=== PATIENT | male | born 1970 | race African-American/Black ===

== ENCOUNTER 2016-11-03 23:33 | Emergency (ER) | payer SELFPAY ==
[~2016-11-03] VITALS: Ht 172.7 cm; Wt 124.7 kg
[2016-11-04] MEDS ORDERED: IV NORMAL SALINE 1000ML BAG 1,000 ML IV SCH (00:16)
[2016-11-04 00:25] LABS: BASO % 0 % (0-3); EOS % 1 % (0-3); HEMATOCRIT 42.4 % (39.0-53.0); LYMPH # 1.6 x10^3/uL (1.0-4.8); LYMPH % 24 % (24-48); MEAN CORPUSCULAR HEMOGLOBIN 29 pg (25-35); MEAN CORPUSCULAR HGB CONC 33 g/dL (31-37); MEAN CORPUSCULAR VOLUME 88 fL (79-100); MONO % 6 % (0-9); NEUT % 69 % (31-73); PLATELET COUNT 269 x10^3/uL (140-400); RED BLOOD COUNT 4.84 x10^6/uL (4.30-5.70); RED CELL DISTRIBUTION WIDTH 14.5 % (11.5-14.5); WHITE BLOOD COUNT 6.8 x10^3/uL (4.0-11.0)
[2016-11-04 00:29] LABS: CALCIUM 9.2 mg/dL (8.5-10.1); CREATININE 1.4 mg/dL (0.7-1.3); GFR 54.1; POTASSIUM 3.5 mmol/L (3.5-5.1)
[2016-11-04 00:35] LABS: ALBUMIN 4.1 g/dL (3.4-5.0); TOTAL BILIRUBIN 0.7 mg/dL (0.2-1.0); TOTAL PROTEIN 8.2 g/dL (6.4-8.2)
[2016-11-04] MEDS ORDERED: CONTRAST GIVEN MC PRN (00:45)
[2016-11-04] MEDS ORDERED: IOHEXOL 300 MG/ML 75 ML VIAL IV ONE (01:00)
[2016-11-04] MEDS ORDERED: IOHEXOL 240 MG/ML 50ML VIAL. IV ONE (01:00)
--- NOTE | 2016-11-04 02:21 | RAD ---
Examination: CT of the abdomen pelvis with oral and IV contrast . History: History of umbilical hernia, pain. COMPARISON None available. TECHNIQUE Axial CT images of the abdomen pelvis were performed with oral and IV contrast. Coronal sagittal reformats were performed. Findings: There is a 4 millimeter pulmonary nodule identified in the right lower lobe of the lung laterally. Minimal bibasilar lung atelectasis. No evidence of free air identified in the abdomen. The visualized liver demonstrates diffuse decreased attenuation throughout the liver likely hepatic steatosis. The visualized spleen, adrenals grossly appears unremarkable. The gallbladder is mildly distended. Small hiatal hernia is identified. Stomach is mildly distended with contrast. There is a 1.9 centimeter hypodensity measuring -78 Hounsfield unit identified in the 1st part of the duodenum or the distal stomach could be a lipoma or fatty food material. The small bowel is nondilated. Feces and gas noted in the colon. Few sigmoid colon diverticulosis identified. The urinary bladder is mildly distended throughout . Small umbilical hernia is identified containing fat and probable omentum. The hernia measures 3.7 centimeters in AP dimension and 2.1 centimeter in transverse dimension. Bilateral kidneys enhance symmetrically. The caliber of the aorta grossly appears unremarkable . Mild degenerative changes lumbar spine. There is bony fusion changes identified at L5-S1 facet region. The appendix is not clearly identified. IMPRESSION - Small umbilical hernia identified containing fat and probably the omentum. - Hepatic steatosis. - Small hiatal hernia. - There is a 1.9 centimeter hypodensity measuring -78 Hounsfield unit identified in the 1st part of the duodenum or the distal stomach could be a lipoma or fatty food material. - 4 millimeter pulmonary nodule identified in the right lower lobe of the lung. Followup nonemergent CT chest can be considered per Fleischner society guidelines. Electronically signed by: Junior Acharya (Nov 04, 2016 02:21:00)
[2016-11-04 02:35] VITALS: BP 128/61
[2016-11-04] MEDS ORDERED: HYDR-971 PO (02:48)
--- NOTE | 2016-11-04 02:48 | PHYS DOC ---
Past Medical History Past Medical History: High Cholesterol, Hypertension Additional Past Medical Histor: Hernia, back pain Past Surgical History: Other Additional Past Surgical Histo: achilles tendon, rotator cuff, back surgery Alcohol Use: Rarely Drug Use: None Adult General Chief Complaint Chief Complaint: ABDOMINAL PAIN HPI HPI Patient is a 46 year old male who presents with abdominal pain. Patient reports he has been having periumbilical pain for the past 5 or 6 months intermittently. Patient reports today he was working (he has to lift heavy boxes at work) and the pain got markedly worse and he had increased swelling around his umbilicus. No nausea or vomiting. He has not taken anything for symptoms. No other acute complaints. Review of Systems Review of Systems Constitutional: Denies fever or chills Eyes: Denies change in visual acuity or eye pain HENT: Congestion Respiratory: Denies cough or shortness of breath Cardiovascular: Denies chest pain GI: Periumbilical abdominal pain. Denies nausea, vomiting, bloody stools or diarrhea : Denies dysuria or hematuria Musculoskeletal: Denies back pain or joint pain Integument: Denies rash or skin lesions Neurologic: Denies headache, focal weakness or sensory changes Current Medications Current Medications Current Medications Medications (Trade) Dose Ordered Sig/Debbie Start Time Stop Time Status Last Admin Dose Admin Info (Do NOT chart on this entry -- for MONITORING) 1 each PRN DAILY PRN 11/04/16 00:45 11/04/16 03:00 FL Iohexol (Omnipaque 240 Mg/ml) 30 ml 1X ONCE 11/04/16 01:00 11/04/16 01:01 DC 11/04/16 01:45 30 ML Iohexol (Omnipaque 300 Mg/ml) 75 ml 1X ONCE 11/04/16 01:00 11/04/16 01:01 DC 11/04/16 01:43 60 ML Sodium Chloride (Iv Sodium Chloride 0.9% 1000ml Bag) 1,000 ml @ 1,000 mls/hr Q1H 11/04/16 00:16 11/04/16 01:15 DC 11/04/16 00:28 1,000 MLS/HR Allergies Allergies Allergies Coded Allergies Type Severity Reaction Last Updated Verified No Known Drug Allergies 11/03/16 No Physical Exam Physical Exam Constitutional: Well developed, well nourished, no acute distress, non-toxic appearance HENT: Normocephalic, atraumatic, bilateral external ears normal Eyes: EOMI, conjunctiva normal, no discharge Neck: Normal range of motion, no stridor Cardiovascular: Heart rate normal, regular rhythm, no murmur Lungs & Thorax: Bilateral breath sounds clear to auscultation Abdomen: Bowel sounds normal, soft, non-distended. Small soft umbilical hernia noted, TTP Skin: Warm, dry, no erythema, no rash Extremities: No obvious deformity, no edema Neurologic: Alert and oriented X 3, no gross deficits noted Current Patient Data Vital Signs Vital Signs Date Time Temp Pulse Resp B/P Pulse Ox O2 Delivery O2 Flow Rate FiO2 11/04/16 02:35 80 25 128/61 97 Room Air 11/03/16 23:52 98.8 98.8 Lab Values Laboratory Tests Test 11/04/16 00:05 11/04/16 01:00 White Blood Count 6.8x10^3/uL (4.0-11.0) Red Blood Count 4.84x10^6/uL (4.30-5.70) Hemoglobin 14.0g/dL (13.0-17.5) Hematocrit 42.4% (39.0-53.0) Mean Corpuscular Volume 88fL (79-100) Mean Corpuscular Hemoglobin 29pg (25-35) Mean Corpuscular Hemoglobin Concent 33g/dL (31-37) Red Cell Distribution Width 14.5% (11.5-14.5) Platelet Count 269x10^3/uL (140-400) Neutrophils (%) (Auto) 69% (31-73) Lymphocytes (%) (Auto) 24% (24-48) Monocytes (%) (Auto) 6% (0-9) Eosinophils (%) (Auto) 1% (0-3) Basophils (%) (Auto) 0% (0-3) Neutrophils # (Auto) 4.6x10^3uL (1.8-7.7) Lymphocytes # (Auto) 1.6x10^3/uL (1.0-4.8) Monocytes # (Auto) 0.4x10^3/uL (0.0-1.1) Eosinophils # (Auto) 0.1x10^3/uL (0.0-0.7) Basophils # (Auto) 0.0x10^3/uL (0.0-0.2) Sodium Level 143mmol/L (136-145) Potassium Level 3.5mmol/L (3.5-5.1) Chloride Level 103mmol/L (98-107) Carbon Dioxide Level 28mmol/L (21-32) Anion Gap 12 (6-14) Blood Urea Nitrogen 19mg/dL (8-26) Creatinine 1.4mg/dL (0.7-1.3) H Estimated GFR (Cockcroft-Gault) 54.1 BUN/Creatinine Ratio 14 (6-20) Glucose Level 121mg/dL (70-99) H Calcium Level 9.2mg/dL (8.5-10.1) Total Bilirubin 0.7mg/dL (0.2-1.0) Aspartate Amino Transferase (AST) 48U/L (15-37) H Alanine Aminotransferase (ALT) 72U/L (16-63) H Alkaline Phosphatase 81U/L (46-116) Total Protein 8.2g/dL (6.4-8.2) Albumin 4.1g/dL (3.4-5.0) Albumin/Globulin Ratio 1.0 (1.0-1.7) Lactic Acid Level 1.8mmol/L (0.4-2.0) Laboratory Tests 11/04/16 00:05 Laboratory Tests 11/04/16 00:05 EKG EKG [] Radiology/Procedures Radiology/Procedures CT A/P: IMPRESSION - Small umbilical hernia identified containing fat and probably the omentum. - Hepatic steatosis. - Small hiatal hernia. - There is a 1.9 centimeter hypodensity measuring -78 Hounsfield unit identified in the 1st part of the duodenum or the distal stomach could be a lipoma or fatty food material. - 4 millimeter pulmonary nodule identified in the right lower lobe of the lung. Followup nonemergent CT chest can be considered per Fleischner society guidelines. Course & Med Decision Making Course & Med Decision Making Pertinent Labs and Imaging studies reviewed. (See chart for details) Patient is 46-year-old male who presents with periumbilical pain and bulging after lifting heavy boxes at work. Apparent umbilical hernia. Will obtain labs and CT scan to rule out strangulation. IV fluids ordered, patient declines any pain medication at this time. Labs unremarkable. Imaging results as above. Discussed results with patient, as well as follow-up with surgery. Discharged home with prescription for pain medication, instructions for follow-up, return precautions. Terence Disclaimer Terence Disclaimer This electronic medical record was generated, in whole or in part, using a voice recognition dictation system. Departure Departure Impression: Primary Impression: Periumbilical hernia Disposition: HOME, SELF-CARE Condition: IMPROVED Referrals: MICHELLE HENDRIX (PCP) STACIE HENSLEY MD Patient Instructions: Hernia Additional Instructions: Thank you for allowing us to provide care today in the Emergency Department. Take the provided medication as directed. Use caution when taking the pain medication as it can make you drowsy. Schedule a follow up appointment with a surgeon using the provided contact information. Return promptly to the Emergency Department if you develop any new or concerning symptoms. Scripts Hydrocodone/Apap 5-325 ([place] 5-325 Tablet)1 Each Tablet1 Tab PO PRN Q6HRS PRN PAIN #25 TAB Prov:AIDA CHANEY MD 11/04/16 AIDA CHANEY MD Nov 04, 2016 02:48
== END 2016-11-04 02:59 | disposition home or self-care (01) ==
LOC: ER 23:33
DX: K42.9 Umbilical hernia without obstruction or gangrene (principal); E78.00 Pure hypercholesterolemia, unspecified; I10 Essential (primary) hypertension
CPT/HCPCS: 36415; 74177; 80053; 83605; 85027; 96360; 99285; J7030; Q9966; Q9967

== ENCOUNTER 2017-03-22 22:49 | Emergency (ER) | payer OTHER ==
[~2017-03-22] VITALS: Ht 172.7 cm; Wt 122.5 kg
[~2017-03-22 22:49] MED LIST: HYDR-971 PO
--- NOTE | 2017-03-22 22:57 | PHYS DOC ---
Past Medical History Past Medical History: High Cholesterol, Hypertension Additional Past Medical Histor: Hernia, back pain; sleep apnea (non compliant) Past Surgical History: Other Additional Past Surgical Histo: achilles tendon, rotator cuff, back surgery Additional Information: Non smoker Alcohol Use: Rarely Drug Use: None Social History Narrative: Adult General Chief Complaint Chief Complaint: ABDOMINAL PAIN HPI HPI Patient is a 47 year old male who presents with abdominal and back pain after a fall. 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 He tripped on something on the floor of the truck while walking backwards pulling off a water heater. He fell backwards onto a pallet of crates. He has back pain and abdominal pain. His umbilical area feels "hard". The abdominal pain hurts the most; radiates to his lower abdomen and to the left. No fever. No vomiting. He denies LOC but was "dazed." No neck pain Review of Systems Review of Systems Constitutional: Denies fever or chills Eyes: Denies change in visual acuity, redness, or eye pain HENT: Denies nasal congestion or sore throat. Hit the back of his head Respiratory: Denies cough or shortness of breath Cardiovascular: No chest pain GI: POS abdominal pain, NO nausea, vomiting, bloody stools or diarrhea : Denies dysuria or hematuria Musculoskeletal: back pain Integument: Denies rash or skin lesions Neurologic: Denies headache, focal weakness or sensory changes Current Medications Current Medications Current Medications Medications (Trade) Dose Ordered Sig/Debbie Start Time Stop Time Status Last Admin Dose Admin Fentanyl Citrate (Fentanyl 2ml Vial) 50 mcg PRN Q15MIN PRN 03/22/17 23:15 03/23/17 23:14 03/22/17 23:38 50 MCG Info (Do NOT chart on this entry -- for MONITORING) 1 each PRN DAILY PRN 03/22/17 23:45 03/24/17 23:44 Iohexol (Omnipaque 300 Mg/ml) 75 ml 1X ONCE 03/23/17 00:00 03/23/17 00:01 DC Ondansetron HCl (Zofran) 4 mg 1X ONCE 03/22/17 23:30 03/22/17 23:31 DC 03/22/17 23:38 4 MG Sodium Chloride 1,000 ml @ 1,000 mls/hr Q1H 03/22/17 23:30 03/23/17 00:29 03/22/17 23:43 1,000 MLS/HR Allergies Allergies Allergies Coded Allergies Type Severity Reaction Last Updated Verified No Known Drug Allergies 11/03/16 No Physical Exam Physical Exam Constitutional: Well developed, well nourished, no acute distress, non-toxic appearance. HENT: pain posterior scalp; bilateral external ears normal, oropharynx moist, no oral exudates, nose normal. Eyes: PERRLA, EOMI, conjunctiva normal, no discharge. Neck: Normal range of motion, no tenderness, supple, no stridor. Non tender cervical spine. Cardiovascular:Heart rate regular rhythm, no murmur Lungs & Thorax: Bilateral breath sounds clear to auscultation Abdomen: Bowel sounds normal, soft, tenderness periumbilical, no masses, no pulsatile masses. Skin: Warm, dry, no erythema, no rash. Back: tenderness along lower thoracic and lumbar spine. No step off; no crepitance. Extremities: No tenderness, no cyanosis, no clubbing, ROM intact, no edema. Neurologic: Alert and oriented X 3, normal motor function, normal sensory function, no focal deficits noted. Psychologic: Affect normal, judgement normal, mood normal. Current Patient Data Vital Signs Vital Signs Date Time Temp Pulse Resp B/P (MAP) Pulse Ox O2 Delivery O2 Flow Rate FiO2 03/23/17 00:11 97.9 61 16 117/65 (82) 91 Room Air 97.9 Lab Values Laboratory Tests Test 03/22/17 23:00 03/22/17 23:20 Urine Collection Type Unknown Urine Color Yellow Urine Clarity Clear Urine pH 5.5 Urine Specific [place] 1.025 Urine Protein Negative mg/dL (NEG-TRACE) Urine Glucose (UA) Negative mg/dL (NEG) Urine Ketones (Stick) Negative mg/dL (NEG) Urine Blood Negative (NEG) Urine Nitrite Negative (NEG) Urine Bilirubin Negative (NEG) Urine Urobilinogen Dipstick 1.0 mg/dL (0.2 mg/dL) Urine Leukocyte Esterase Negative (NEG) Urine RBC 0 /HPF (0-2) Urine WBC Occ /HPF (0-4) Urine Squamous Epithelial Cells Few /LPF Urine Bacteria 0 /HPF (0-FEW) Urine Mucus Mod /LPF White Blood Count 4.9 x10^3/uL (4.0-11.0) Red Blood Count 4.52 x10^6/uL (4.30-5.70) Hemoglobin 13.5 g/dL (13.0-17.5) Hematocrit 39.6 % (39.0-53.0) Mean Corpuscular Volume 88 fL (79-100) Mean Corpuscular Hemoglobin 30 pg (25-35) Mean Corpuscular Hemoglobin Concent 34 g/dL (31-37) Red Cell Distribution Width 13.8 % (11.5-14.5) Platelet Count 231 x10^3/uL (140-400) Neutrophils (%) (Auto) 58 % (31-73) Lymphocytes (%) (Auto) 32 % (24-48) Monocytes (%) (Auto) 8 % (0-9) Eosinophils (%) (Auto) 2 % (0-3) Basophils (%) (Auto) 1 % (0-3) Neutrophils # (Auto) 2.8 x10^3uL (1.8-7.7) Lymphocytes # (Auto) 1.5 x10^3/uL (1.0-4.8) Monocytes # (Auto) 0.4 x10^3/uL (0.0-1.1) Eosinophils # (Auto) 0.1 x10^3/uL (0.0-0.7) Basophils # (Auto) 0.0 x10^3/uL (0.0-0.2) Sodium Level 144 mmol/L (136-145) Potassium Level 3.6 mmol/L (3.5-5.1) Chloride Level 106 mmol/L (98-107) Carbon Dioxide Level 30 mmol/L (21-32) Anion Gap 8 (6-14) Blood Urea Nitrogen 16 mg/dL (8-26) Creatinine 1.3 mg/dL (0.7-1.3) Estimated GFR (Cockcroft-Gault) 71.0 BUN/Creatinine Ratio 12 (6-20) Glucose Level 116 mg/dL (70-99) H Calcium Level 8.5 mg/dL (8.5-10.1) Total Bilirubin 0.6 mg/dL (0.2-1.0) Aspartate Amino Transferase (AST) 41 U/L (15-37) H Alanine Aminotransferase (ALT) 66 U/L (16-63) H Alkaline Phosphatase 65 U/L (46-116) Total Protein 7.2 g/dL (6.4-8.2) Albumin 3.7 g/dL (3.4-5.0) Albumin/Globulin Ratio 1.1 (1.0-1.7) Laboratory Tests 03/22/17 23:20 Laboratory Tests 03/22/17 23:20 Radiology/Procedures Impressions: [facility] [address] [place] [address] IMAGING REPORT Signed PATIENT: MICHAEL LANDA ACCOUNT: [id number] : 1970 LOCATION: ER AGE: 47 SEX: M EXAM STATUS: REG ER ORD. PHYSICIAN: SANDHYA REYNA MD REASON: fall and hit head at work PROCEDURE: CT HEAD WO CONTRAST CT HEAD INDICATION: fall, hit back of head, no priors COMPARISON: None Available. TECHNIQUE: 5 mm contiguous axial images were obtained from the skull base to the vertex. Exposure: One or more of the following individualized dose reduction techniques were utilized for this examination: 1. Automated exposure control 2. Adjustment of the mA and/or kV according to patient size 3. Use of iterative reconstruction technique FINDINGS: Mild bilateral periventricular white matter hypodensities likely chronic small vessel ischemic disease. No evidence of acute intracranial hemorrhage. No extra-axial fluid collections. No mass effect or midline shift. Ventricular size is appropriate. Basal cisterns are patent. No fractures identified.Browning-white differentiation is preserved.Globes and orbits are within normal limits. Paranasal sinuses and mastoid air cells are clear. IMPRESSION: No acute intracranial findings. Electronically signed by: Junior Acharya MD (03/23/2017 12:03 AM) [facility] DICTATED and SIGNED BY: JUNIOR ACHARYA MD DATE: 03/23/17 0001 CC: SANDHYA REYNA MD; MICHELLE HENDRIX ~ [facility] [address] [place], [place] [id number] IMAGING REPORT Signed PATIENT: MICHAEL LANDA ACCOUNT: [id number] : 1970 LOCATION: ER AGE: 47 SEX: M EXAM STATUS: REG ER ORD. PHYSICIAN: SANDHYA REYNA MD REASON: fall w umbilical pain; untreated hernia PROCEDURE: CT THORACIC SPINE WO CONTRAST Examination: CT thoracic spine without contrast HISTORY: History of back pain status post fall COMPARISON: None available TECHNIQUE: Axial CT images of the thoracic spine was performed without contrast. Coronal and sagittal reformats are performed Exposure: One or more of the following individualized dose reduction techniques were utilized for this examination: 1. Automated exposure control 2. Adjustment of the mA and/or kV according to patient size 3. Use of iterative reconstruction technique FINDINGS: The vertebral body heights are maintained. No evidence of listhesis identified. The bilateral facets are well aligned. The upper thoracic evaluation is somewhat limited due to mild motion artifact. Minimal left lung base atelectasis. Prominent appearing left lobe of the thyroid gland with calcified nodule identified in the left lower thyroid gland measuring about 1.1 cm. IMPRESSION: 1. No acute osseous findings. 2. Mildly enlarged thyroid gland with calcified nodule identified in the left lower thyroid gland measuring 1.1 cm. Follow-up nonemergent ultrasound is recommended. Electronically signed by: Junior Acharya MD (03/23/2017 12:08 AM) [facility] DICTATED and SIGNED BY: JUNIOR ACHARYA MD DATE: 03/23/17 0003 CC: SANDHYA REYNA MD; MICHELLE HENDRIX [facility] [address] [place], [place] [id number] IMAGING REPORT Signed PATIENT: MICHAEL LANDA ACCOUNT: [id number] : 1970 LOCATION: ER AGE: 47 SEX: M EXAM STATUS: REG ER ORD. PHYSICIAN: SANDHYA REYNA MD REASON: fall w umbilical pain; untreated hernia PROCEDURE: CT ABD PELV W/ IV CONTRST ONLY Examination: CT of the abdomen pelvis with IV contrast and CT lumbar spine without contrast HISTORY: History of abdominal pain status post fall COMPARISON: None available TECHNIQUE: Axial CT images of the abdomen pelvis were performed with IV contrast. Axial CT images of the lumbar spine was performed without contrast. Coronal and sagittal reformats are performed. Exposure: One or more of the following individualized dose reduction techniques were utilized for this examination: 1. Automated exposure control 2. Adjustment of the mA and/or kV according to patient size 3. Use of iterative reconstruction technique FINDINGS: There is a 6 mm pulmonary nodule identified in the right lower lobe of the lung. Minimal bibasilar lung atelectasis. No evidence of free air identified in the abdomen. There is mild diffuse decreased attenuation noted throughout the liver likely hepatic steatosis. The visualized spleen, adrenals grossly appears unremarkable. The gallbladder is mildly distended. The stomach is mildly distended. The visualized pancreas grossly appears unremarkable. The small bowel is nondilated. Feces and gas noted in the colon. Few sigmoid colon diverticulosis identified. The urinary bladder is mildly distended. Mildly enlarged prostate gland with central prostatic calcifications. The bilateral kidneys enhance symmetrically. Punctate 2 mm intrarenal collecting system calculus identified in the right kidney. No evidence of hydronephrosis. The caliber of the aorta grossly appears unremarkable. The caliber of the IVC grossly appears unremarkable. There is bony fusion of L5-S1 level with anterolisthesis of L5 on S1. There is posterior element fusion of the L4-L5 vertebral levels. Moderate disc bulge identified at L3-L4 vertebral level with the mild diffuse disc bulge causing mild spinal canal stenosis at this level. Small fat and omentum-containing umbilical hernia. IMPRESSION: 1. No acute intra-abdominal findings. 2. Small fat and omentum-containing umbilical hernia. 3. Punctate 2 mm intrarenal collecting system calculus identified in the right kidney. 4. Hepatic steatosis. 5. Moderate degenerative changes lumbar spine most at L3-L4 vertebral level. 6. 6 mm pulmonary nodule right lower lobe of the lung. Follow-up per Fleischner Society guidelines. Follow-up CT chest in 6-12 months. Electronically signed by: Junior Acharya MD (03/23/2017 12:18 AM) [facility] DICTATED and SIGNED BY: JUNIOR ACHARYA MD DATE: 03/23/17 0015 CC: SANDHYA REYNA MD; MICHELLE HENDRIX ~ Course & Med Decision Making Course & Med Decision Making Pertinent Labs and Imaging studies reviewed. (See chart for details) Evaluated patient upon arrival. He has a fall but I believe he may have exacerbated his known umbilical hernia during the movement. Concerned about incarceration. IV fentanyl; NPO. AT 0005 am: patient back from CT; awaiting results. At [address] results back. Fat containing umbilical hernia; no bowel or evidence of incarceration. Incidental findings of left thyroid nodule and right pulmonary nodule. Findings conveyed to patient and and need for outpatient follow up on both with risk for malignancy if ignored. Patient discharged to home w . rx; norflex and naprosyn. F/u W PCP and surgeon. Wear a hernia belt while lifting Dragon Disclaimer Dragon Disclaimer This electronic medical record was generated, in whole or in part, using a voice recognition dictation system. Departure Departure Impression: Primary Impression: Fall Additional Impressions: Periumbilical hernia Thyroid nodule Pulmonary nodule Lumbar strain Disposition: HOME, SELF-CARE Condition: STABLE Referrals: MICHELLE HENDRIX (PCP) Patient Instructions: Hernia, Incidental Abnormal Radiological Finding, Low Back Strain with [facility], Pulmonary Nodule Additional Instructions: YOU HAVE A SMALL UMBILICAL HERNIA THAT IS NOT CONTAINING ANY BOWEL. YOU WILL NEED THAT FIXED AT SOME POINT. 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 ALSO ON YOUR CT THERE WAS NOTED AN INCIDENTAL THYROID NODULE AND PULMONARY NODULE. BOTH REQUIRE RE-EVALUATION BY YOUR DOCTOR OUTPATIENT. THIS CAN BE DONE NON EMERGENT BUT DO NOT IGNORE IT IS IMPOSSIBLE TO TELL AT THIS DATE IF THESE WILL BECOME MALIGNANT OR NOT (CANCEROUS). Scripts Tizanidine Hcl (ZANAFLEX) 4 Mg Tablet 1 TAB PO BID, #30 TAB Prov: SANDHYA REYNA MD 03/23/17 Problem Qualifiers Primary Impression: Fall Encounter type: initial encounter Qualified Codes: W19.XXXA - Unspecified fall, initial encounter Additional Impressions: Lumbar strain Encounter type: initial encounter Qualified Codes: S39.012A - Strain of muscle, fascia and tendon of lower back, initial encounter SANDHYA REYNA MD Mar 22, 2017 22:57
[2017-03-22] MEDS ORDERED: fentaNYL PF VIAL 100 MCG/2 ML VIAL IV PRN (23:15)
[2017-03-22 23:28] LABS: BASO % 1 % (0-3); EOS % 2 % (0-3); HEMATOCRIT 39.6 % (39.0-53.0); HEMOGLOBIN 13.5 g/dL (13.0-17.5); LYMPH # 1.5 x10^3/uL (1.0-4.8); LYMPH % 32 % (24-48); MEAN CORPUSCULAR HEMOGLOBIN 30 pg (25-35); MEAN CORPUSCULAR HGB CONC 34 g/dL (31-37); MEAN CORPUSCULAR VOLUME 88 fL (79-100); MONO % 8 % (0-9); NEUT % 58 % (31-73); PLATELET COUNT 231 x10^3/uL (140-400); RED BLOOD COUNT 4.52 x10^6/uL (4.30-5.70); RED CELL DISTRIBUTION WIDTH 13.8 % (11.5-14.5); WHITE BLOOD COUNT 4.9 x10^3/uL (4.0-11.0)
[2017-03-22 23:30] LABS: BILIRUBIN,URINE NEGATIVE (NEG); GLUCOSE,URINE NEGATIVE (NEG); NITRITE,URINE NEGATIVE (NEG); PH,URINE 5.5; PROTEIN,URINE NEGATIVE (NEG-TRACE)
[2017-03-22] MEDS ORDERED: ONDANSETRON PF 4 MG/2 ML VIAL. IV ONE (23:30)
[2017-03-22] MEDS ORDERED: IV NORMAL SALINE 1000ML BAG 1,000 ML IV SCH (23:30)
[2017-03-22 23:36] LABS: CALCIUM 8.5 mg/dL (8.5-10.1); CREATININE 1.3 mg/dL (0.7-1.3); POTASSIUM 3.6 mmol/L (3.5-5.1)
[2017-03-22 23:42] LABS: ALBUMIN 3.7 g/dL (3.4-5.0); ALBUMIN/GLOBULIN RATIO 1.1 (1.0-1.7); TOTAL BILIRUBIN 0.6 mg/dL (0.2-1.0); TOTAL PROTEIN 7.2 g/dL (6.4-8.2)
[2017-03-22 23:42] LABS: BACTERIA,URINE 0 /HPF (0-FEW); RBC,URINE 0 /HPF (0-2); SQUAMOUS EPITHELIAL CELL,UR FEW /LPF; WBC,URINE OCC /HPF (0-4)
[2017-03-22] MEDS ORDERED: CONTRAST GIVEN MC PRN (23:45)
[2017-03-23] MEDS ORDERED: IOHEXOL 300 MG/ML 75 ML VIAL IV ONE
--- NOTE | 2017-03-23 00:07 | RAD ---
CT HEAD INDICATION: fall, hit back of head, no priors COMPARISON: None Available. TECHNIQUE: 5 mm contiguous axial images were obtained from the skull base to the vertex. Exposure: One or more of the following individualized dose reduction techniques were utilized for this examination: 1. Automated exposure control 2. Adjustment of the mA and/or kV according to patient size 3. Use of iterative reconstruction technique FINDINGS: Mild bilateral periventricular white matter hypodensities likely chronic small vessel ischemic disease. No evidence of acute intracranial hemorrhage. No extra-axial fluid collections. No mass effect or midline shift. Ventricular size is appropriate. Basal cisterns are patent. No fractures identified.Browning-white differentiation is preserved.Globes and orbits are within normal limits. Paranasal sinuses and mastoid air cells are clear. IMPRESSION: No acute intracranial findings. Electronically signed by: Junior Acharya MD (03/23/2017 12:03 AM) [facility]
--- NOTE | 2017-03-23 00:11 | RAD ---
Examination: CT thoracic spine without contrast HISTORY: History of back pain status post fall COMPARISON: None available TECHNIQUE: Axial CT images of the thoracic spine was performed without contrast. Coronal and sagittal reformats are performed Exposure: One or more of the following individualized dose reduction techniques were utilized for this examination: 1. Automated exposure control 2. Adjustment of the mA and/or kV according to patient size 3. Use of iterative reconstruction technique FINDINGS: The vertebral body heights are maintained. No evidence of listhesis identified. The bilateral facets are well aligned. The upper thoracic evaluation is somewhat limited due to mild motion artifact. Minimal left lung base atelectasis. Prominent appearing left lobe of the thyroid gland with calcified nodule identified in the left lower thyroid gland measuring about 1.1 cm. IMPRESSION: 1. No acute osseous findings. 2. Mildly enlarged thyroid gland with calcified nodule identified in the left lower thyroid gland measuring 1.1 cm. Follow-up nonemergent ultrasound is recommended. Electronically signed by: Junior Acharya MD (03/23/2017 12:08 AM) [facility]
--- NOTE | 2017-03-23 00:21 | RAD ---
Examination: CT of the abdomen pelvis with IV contrast and CT lumbar spine without contrast HISTORY: History of abdominal pain status post fall COMPARISON: None available TECHNIQUE: Axial CT images of the abdomen pelvis were performed with IV contrast. Axial CT images of the lumbar spine was performed without contrast. Coronal and sagittal reformats are performed. Exposure: One or more of the following individualized dose reduction techniques were utilized for this examination: 1. Automated exposure control 2. Adjustment of the mA and/or kV according to patient size 3. Use of iterative reconstruction technique FINDINGS: There is a 6 mm pulmonary nodule identified in the right lower lobe of the lung. Minimal bibasilar lung atelectasis. No evidence of free air identified in the abdomen. There is mild diffuse decreased attenuation noted throughout the liver likely hepatic steatosis. The visualized spleen, adrenals grossly appears unremarkable. The gallbladder is mildly distended. The stomach is mildly distended. The visualized pancreas grossly appears unremarkable. The small bowel is nondilated. Feces and gas noted in the colon. Few sigmoid colon diverticulosis identified. The urinary bladder is mildly distended. Mildly enlarged prostate gland with central prostatic calcifications. The bilateral kidneys enhance symmetrically. Punctate 2 mm intrarenal collecting system calculus identified in the right kidney. No evidence of hydronephrosis. The caliber of the aorta grossly appears unremarkable. The caliber of the IVC grossly appears unremarkable. There is bony fusion of L5-S1 level with anterolisthesis of L5 on S1. There is posterior element fusion of the L4-L5 vertebral levels. Moderate disc bulge identified at L3-L4 vertebral level with the mild diffuse disc bulge causing mild spinal canal stenosis at this level. Small fat and omentum-containing umbilical hernia. IMPRESSION: 1. No acute intra-abdominal findings. 2. Small fat and omentum-containing umbilical hernia. 3. Punctate 2 mm intrarenal collecting system calculus identified in the right kidney. 4. Hepatic steatosis. 5. Moderate degenerative changes lumbar spine most at L3-L4 vertebral level. 6. 6 mm pulmonary nodule right lower lobe of the lung. Follow-up per Fleischner Society guidelines. Follow-up CT chest in 6-12 months. Electronically signed by: Junior Acharya MD (03/23/2017 12:18 AM) [facility]
[2017-03-23] MEDS ORDERED: TIZA4TAB8 PO (00:32)
[2017-03-23] MEDS ORDERED: KETOROLAC TROMETHAMINE 30 MG/ML INJ. IV ONE (01:00)
[2017-03-23] MEDS ORDERED: ORPHENADRINE CITRATE 60 MG/2 ML VIAL. IM ONE (01:00)
[2017-03-23 01:05] VITALS: BP 125/71
== END 2017-03-23 01:10 | disposition home or self-care (01) ==
LOC: ER 22:49
DX: S39.012A Strain of muscle, fascia and tendon of lower back, initial encounter (principal); K42.9 Umbilical hernia without obstruction or gangrene; E04.1 Nontoxic single thyroid nodule; R91.1 Solitary pulmonary nodule; E78.00 Pure hypercholesterolemia, unspecified; I10 Essential (primary) hypertension; G47.30 Sleep apnea, unspecified; W18.39XA Other fall on same level, initial encounter; Y93.89 Activity, other specified; Y92.89 Other specified places as the place of occurrence of the external cause; Y99.8 Other external cause status
CPT/HCPCS: 36415; 70450; 72128; 74177; 80053; 81001; 85025; 96361; 96372; 96374; 96375; 99285; J1885; J2360; J2405; J3010; J7030

== ENCOUNTER 2021-02-28 18:59 | Observation (INO) | payer OTHER ==
[~2021-02-28] VITALS: Ht 172.7 cm; Wt 132.1 kg
[~2021-02-28 18:59] MED LIST changes: +HYDR-3164 PO; -HYDR-971 PO; +TIZA4TAB8 PO
[2021-02-28] MEDS ORDERED: IV NORMAL SALINE 1000ML BAG 1,000 ML IV SCH (19:15)
[2021-02-28] MEDS ORDERED: ACETAMINOPHEN 500 MG TABLET PO ONE (19:15)
[2021-02-28] MEDS ORDERED: methylPREDNISolone SOD SUCC PF 125 MG/2 ML VIAL. IV ONE (19:15)
[2021-02-28 19:56] LABS: BASO % 1 % (0-3); EOS % 0 % (0-3); HEMATOCRIT 39.9 % (39.0-53.0); HEMOGLOBIN 13.8 g/dL (13.0-17.5); LYMPH # 0.8 x10^3/uL (1.0-4.8); LYMPH % 20 % (24-48); MEAN CORPUSCULAR HEMOGLOBIN 30 pg (25-35); MEAN CORPUSCULAR HGB CONC 35 g/dL (31-37); MEAN CORPUSCULAR VOLUME 86 fL (79-100); MONO # 0.4 x10^3/uL (0.0-1.1); MONO % 9 % (0-9); NEUT # 2.8 x10^3/uL (1.8-7.7); NEUT % 70 % (31-73); PLATELET COUNT 186 x10^3/uL (140-400); RED BLOOD COUNT 4.66 x10^6/uL (4.30-5.70); RED CELL DISTRIBUTION WIDTH 13.7 % (11.5-14.5)
[2021-02-28 20:08] LABS: CALCIUM 8.1 mg/dL (8.5-10.1); CREATININE 1.2 mg/dL (0.7-1.3); GFR 76.9; POTASSIUM 3.7 mmol/L (3.5-5.1)
[2021-02-28] MEDS ORDERED: IOHEXOL 300 MG/ML 100ML VIAL. IV ONE (20:15)
--- NOTE | 2021-02-28 20:25 | PHYS DOC ---
Past Medical History Past Medical History: High Cholesterol, Hypertension Additional Past Medical Histor: Hernia, back pain; sleep apnea (non compliant) OBESITY Past Surgical History: TURP Additional Past Surgical Histo: R rotator Cuff, L ankle achilles tendon, Lower vertebral spinal fusion Smoking Status: Never Smoker Alcohol Use: None Drug Use: None General Adult EDM: Chief Complaint: ABDOMINAL PAIN HPI: HPI: Patient is a 50 year old male who presents with 1 week of nausea, fever, generalized body aches and weakness, shortness of breath, intermittent headache. Patient states that he did get his Covid vaccine the last was in November. He does not remember which vaccine he got. Patient states that his shortness of breath gets better when he is up and moving around. He states he has generalized muscle aches. Denies chest pain, syncope, dizziness, vision change, vomiting, diarrhea, constipation, numbness or tingling, abdominal pain, new back pain. He has a history of chronic back pain, spinal fusion, Achilles tendon and surgery, rotator cuff surgery, obesity, high cholesterol, hypertension, hernia repair, sleep apnea. Review of Systems: Review of Systems: Constitutional: +fever or chills. [] Eyes: Denies change in visual acuity. [] HENT: Denies nasal congestion or sore throat. [] Respiratory: Denies cough or +shortness of breath. [] Cardiovascular: Denies chest pain or edema. [] GI: Denies abdominal pain, +nausea, denies vomiting, bloody stools or diarrhea. [] : Denies dysuria. [] Musculoskeletal: Denies back pain or joint pain. + Generalized body aches and weakness [] Integument: Denies rash. [] Neurologic: + Intermittent headache, denies focal weakness or sensory changes. [] Endocrine: Denies polyuria or polydipsia. [] Lymphatic: Denies swollen glands. [] Psychiatric: Denies depression or anxiety. [] Heart Score: C/O Chest Pain: No Risk Factors: Risk Factors: DM, Current or recent (<one month) smoker, HTN, HLP, family history of CAD, obesity. Risk Scores: Score 0 - 3: 2.5% MACE over next 6 weeks - Discharge Home Score 4 - 6: 20.3% MACE over next 6 weeks - Admit for Clinical Observation Score 7 - 10: 72.7% MACE over next 6 weeks - Early Invasive Strategies Current Medications: Current Medications Medications (Trade) Dose Ordered Sig/Debbie Start Time Stop Time Status Last Admin Dose Admin Acetaminophen (Tylenol) 1,000 mg 1X ONCE 02/28/21 19:15 02/28/21 19:19 DC Methylprednisolone Sodium Succinate (SOLU-Medrol 125MG VIAL) 125 mg 1X ONCE 02/28/21 19:15 02/28/21 19:19 DC Sodium Chloride 1,000 ml @ 1,000 mls/hr Q1H 02/28/21 19:15 02/28/21 20:14 Allergies: Allergies: Allergies Coded Allergies Type Severity Reaction Last Updated Verified No Known Drug Allergies 11/03/16 No Physical Exam: PE: Constitutional: Well developed, well nourished, no acute distress, non-toxic appearance. [] HENT: Normocephalic, atraumatic, bilateral external ears normal, oropharynx mo ist, no oral exudates, nose normal. [] Eyes: PERRLA, EOMI, conjunctiva normal, no discharge. [] Neck: Normal range of motion, no tenderness, supple, no stridor. [] Cardiovascular:Heart rate regular rhythm, no murmur [] Lungs & Thorax: Bilateral upper breath sounds clear and lower diminished to auscultation [] Abdomen: Bowel sounds normal, soft, no tenderness, no masses, no pulsatile masses. [] Skin: Warm, dry, no erythema, no rash. [] Back: No tenderness, no CVA tenderness. [] Extremities: No tenderness, no cyanosis, no clubbing, ROM intact, bilateral lower 2+ edema. [] Neurologic: Alert and oriented X 3, normal motor function, normal sensory function, no focal deficits noted. [] Psychologic: Affect normal, judgement normal, mood normal. [] Current Patient Data: Labs: Laboratory Tests Test 02/28/21 19:47 White Blood Count 4.0 x10^3/uL (4.0-11.0) Red Blood Count 4.66 x10^6/uL (4.30-5.70) Hemoglobin 13.8 g/dL (13.0-17.5) Hematocrit 39.9 % (39.0-53.0) Mean Corpuscular Volume 86 fL (79-100) Mean Corpuscular Hemoglobin 30 pg (25-35) Mean Corpuscular Hemoglobin Concent 35 g/dL (31-37) Red Cell Distribution Width 13.7 % (11.5-14.5) Platelet Count 186 x10^3/uL (140-400) Neutrophils (%) (Auto) 70 % (31-73) Lymphocytes (%) (Auto) 20 % (24-48) L Monocytes (%) (Auto) 9 % (0-9) Eosinophils (%) (Auto) 0 % (0-3) Basophils (%) (Auto) 1 % (0-3) Neutrophils # (Auto) 2.8 x10^3/uL (1.8-7.7) Lymphocytes # (Auto) 0.8 x10^3/uL (1.0-4.8) L Monocytes # (Auto) 0.4 x10^3/uL (0.0-1.1) Eosinophils # (Auto) 0.0 x10^3/uL (0.0-0.7) Basophils # (Auto) 0.0 x10^3/uL (0.0-0.2) Laboratory Tests 02/28/21 19:47 Vital Signs: Vital Signs Date Time Temp Pulse Resp B/P (MAP) Pulse Ox O2 Delivery O2 Flow Rate FiO2 02/28/21 19:15 102.9 117 26 125/71 (89 93 102.9 EKG: EK and read by Dr Dickinson as sinus tachycardia and no stemi Radiology/Procedures: Radiology/Procedures: [] Impression: [facility] [address] [place], [place] [id number] IMAGING REPORT Signed PATIENT: MICHAEL LANDA ACCOUNT: [id number] : 1970 LOCATION: ER AGE: 50 SEX: M EXAM STATUS: REG ER ORD. PHYSICIAN: ALEXANDR ZHAO APRN REASON: NAUSEA, FEVER PROCEDURE: CT ABD PELV W/ IV CONTRST ONLY Exam: CT abdomen and pelvis with contrast INDICATION: Nausea, fever TECHNIQUE: Sequential axial images through the abdomen and pelvis obtained following the administration of 75 mL of Omni 300 IV contrast. Sagittal and coronal reformatted images were reconstructed from the axial data and reviewed. Exposure: One or more of the following in the visualized dose reduction techniques were utilized for this examination: 1. Automated exposure control 2. Adjustment of the MA and/or KV according to patient size 3. Use of iterative of reconstructive technique Comparisons: 11/20/2016 FINDINGS: Heart size is normal. No pericardial effusion. Strandy opacities at dependent portion lungs. No pleural effusion. Mild diffuse hepatic steatosis. Spleen, pancreas and adrenals are unremarkable. Gallbladder is absent. No perinephric inflammation or hydronephrosis. No renal or ureteral calculi are identified. Bladder is decompressed not well evaluated. Prostate is nonenlarged. Few scattered diverticula noted in the sigmoid colon without evidence of acute diverticulitis. Appendix is nonidentified. No free intra-abdominal air or fluid. No obstruction. Abdominal aorta has a normal course and caliber. Abdominal vasculature is patent. No enlarged abdominal lymph nodes are identified. No suspicious osseous lesions or acute fractures. IMPRESSION: No acute process identified within the abdomen or pelvis. Electronically signed by: Bobby Nichols MD (02/28/2021 9:52 PM) [facility] DICTATED and SIGNED BY: BOBBY NICHOLS MD DATE: 02/28/21 [id number] 0 Course & Med Decision Making: Course & Med Decision Making Pertinent Labs and Imaging studies reviewed. (See chart for details) COVID-19 CRITERIA: The patient was evaluated during the global COVID-19 pandemic, and that diagnosis was suspected/considered upon their initial presentation. Their evaluation, treatment and testing was consistent with current guidelines for patients who present with complaints or symptoms that may be related to COVID-19. See HPI. Alert and oriented x4. Ambulatory with steady gait but very breathless. Does have bilateral lower edema 2+. Patient seems to breathe better when he sitting straight up. CVA tenderness but he states that he thinks it is all muscle pain related. Skin pink warm and dry. Cap refill less than 2 seconds. Speaks in full clear sentences. [] Dragon Disclaimer: Dragon Disclaimer: This electronic medical record was generated, in whole or in part, using a voice recognition dictation system. Departure Departure Impression: Primary Impression: COVID-19 Additional Impressions: Hypoxia Pneumonia Qualified Codes: J18.9 - Pneumonia, unspecified organism Disposition: ADMITTED INPATIENT Condition: STABLE Referrals: UNKNOWN PCP NAME (PCP) ALEXANDR ZHAO APRN Feb 28, 2021 20:25
[2021-02-28 20:27] LABS: ALBUMIN 3.5 g/dL (3.4-5.0); ALBUMIN/GLOBULIN RATIO 0.9 (1.0-1.7); TOTAL BILIRUBIN 0.6 mg/dL (0.2-1.0); TOTAL PROTEIN 7.6 g/dL (6.4-8.2)
[2021-02-28] MEDS ORDERED: CONTRAST GIVEN. MC PRN (20:30)
[2021-02-28 21:23] LABS: BILIRUBIN,URINE NEGATIVE (NEG); CLARITY,URINE CLEAR; COLOR,URINE YELLOW; NITRITE,URINE NEGATIVE (NEG); PROTEIN,URINE NEGATIVE (NEG-TRACE)
[2021-02-28 21:30] LABS: BACTERIA,URINE 0 /HPF (0-FEW); RBC,URINE 0 /HPF (0-2); WBC,URINE OCC /HPF (0-4)
--- NOTE | 2021-02-28 21:32 | RAD ---
Exam: Chest one view INDICATION: Short of air TECHNIQUE: Frontal view of the chest Comparisons: None FINDINGS: The cardiomediastinal silhouette and pulmonary vessels are within normal limits. The lung and pleural spaces are clear. IMPRESSION: No acute cardiopulmonary process. Electronically signed by: Bobby Arango MD (02/28/2021 9:30 PM) [facility]
--- NOTE | 2021-02-28 21:55 | RAD ---
Exam: CT abdomen and pelvis with contrast INDICATION: Nausea, fever TECHNIQUE: Sequential axial images through the abdomen and pelvis obtained following the administrati on of 75 mL of Omni 300 IV contrast. Sagittal and coronal reformatted images were reconstructed from the axial data and reviewed. Exposure: One or more of the following in the visualized dose reduction techniques were utilized for this examination: 1. Automated exposure control 2. Adjustment of the MA and/or KV according to patient size 3. Use of iterative of reconstructive technique Comparisons: 11/20/2016 FINDINGS: Heart size is normal. No pericardial effusion. Strandy opacities at dependent portion lungs. No pleur al effusion. Mild diffuse hepatic steatosis. Spleen, pancreas and adrenals are unremarkable. Gallbladder is absent . No perinephric inflammation or hydronephrosis. No renal or ureteral calculi are identified. Bladder is decompressed not well evaluated. Prostate is nonenlarged. Few scattered diverticula noted in the sigmoid colon without evidence of acute diverticulitis. Append ix is nonidentified. No free intra-abdominal air or fluid. No obstruction. Abdominal aorta has a normal course and caliber. Abdominal vasculature is patent. No enlarged abdominal lymph nodes are identified. No suspicious osseous lesions or acute fractures. IMPRESSION: No acute process identified within the abdomen or pelvis. Electronically signed by: Bobby Arango MD (02/28/2021 9:52 PM) [facility]
[2021-02-28 21:59] LABS: BASE EXCESS COOX 1 mmol/L (-3-3); HCO3 COOX 26 mmol/L (21-28); METHEMOGLOBIN 0.5 % (0.0-1.9); OXYHEMOGLOBIN 90.7 %; PCO2 COOX 39 mmHg (35-46); PO2 COOX 63 mmHg (75-108); SAT O2 COOX 91 % (92-99)
[2021-02-28] MEDS ORDERED: ACETAMINOPHEN 325 MG TABLET. PO PRN (22:30)
[2021-02-28] MEDS ORDERED: AZITHRMYCN 500MG IVPB FOR OMNI 250 ML IV ONE (22:30)
--- NOTE | 2021-03-01 04:56 | EKG ---
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
[2021-03-01] MEDS ORDERED: DULO60CA45 PO (05:28)
[2021-03-01] MEDS ORDERED: ATOR10TA60 PO (05:28)
[2021-03-01] MEDS ORDERED: LISI1TAB23 PO (05:28)
[2021-03-01] MEDS ORDERED: AMLO-187 PO (05:28)
[2021-03-01 07:00] VITALS: BP 127/73
--- NOTE | 2021-03-01 07:41 | PDOC ---
PULMONARY PROGRESS NOTES DATE: 03/01/21 TIME: 07:41 Vitals Vital Signs Date Time Temp Pulse Resp B/P (MAP) Pulse Ox O2 Delivery O2 Flow Rate FiO2 03/01/21 04:45 Room Air 03/01/21 04:14 71 20 128/62 (84) 91 02/28/21 19:15 102.9 102.9 Labs Laboratory Tests Test 02/28/21 19:47 02/28/21 21:15 02/28/21 21:25 02/28/21 21:50 White Blood Count 4.0 x10^3/uL (4.0-11.0) Red Blood Count 4.66 x10^6/uL (4.30-5.70) Hemoglobin 13.8 g/dL (13.0-17.5) Hematocrit 39.9 % (39.0-53.0) Mean Corpuscular Volume 86 fL (79-100) Mean Corpuscular Hemoglobin 30 pg (25-35) Mean Corpuscular Hemoglobin Concent 35 g/dL (31-37) Red Cell Distribution Width 13.7 % (11.5-14.5) Platelet Count 186 x10^3/uL (140-400) Neutrophils (%) (Auto) 70 % (31-73) Lymphocytes (%) (Auto) 20 % (24-48) Monocytes (%) (Auto) 9 % (0-9) Eosinophils (%) (Auto) 0 % (0-3) Basophils (%) (Auto) 1 % (0-3) Neutrophils # (Auto) 2.8 x10^3/uL (1.8-7.7) Lymphocytes # (Auto) 0.8 x10^3/uL (1.0-4.8) Monocytes # (Auto) 0.4 x10^3/uL (0.0-1.1) Eosinophils # (Auto) 0.0 x10^3/uL (0.0-0.7) Basophils # (Auto) 0.0 x10^3/uL (0.0-0.2) Sodium Level 136 mmol/L (136-145) Potassium Level 3.7 mmol/L (3.5-5.1) Chloride Level 100 mmol/L (98-107) Carbon Dioxide Level 30 mmol/L (21-32) Anion Gap 6 (6-14) Blood Urea Nitrogen 13 mg/dL (8-26) Creatinine 1.2 mg/dL (0.7-1.3) Estimated GFR (Cockcroft-Gault) 76.9 BUN/Creatinine Ratio 11 (6-20) Glucose Level 105 mg/dL (70-99) Lactic Acid Level 0.7 mmol/L (0.4-2.0) Calcium Level 8.1 mg/dL (8.5-10.1) Total Bilirubin 0.6 mg/dL (0.2-1.0) Aspartate Amino Transf (AST/SGOT) 33 U/L (15-37) Alanine Aminotransferase (ALT/SGPT) 41 U/L (16-63) Alkaline Phosphatase 81 U/L (46-116) Troponin I Quantitative < 0.017 ng/mL (0.000-0.055) GP-Oat-W-Type Natriuretic Peptide 8 pg/mL (0-124) Total Protein 7.6 g/dL (6.4-8.2) Albumin 3.5 g/dL (3.4-5.0) Albumin/Globulin Ratio 0.9 (1.0-1.7) Urine Collection Type Void Urine Color Yellow Urine Clarity Clear Urine pH 8.0 (<5.0-8.0) Urine Specific [place] 1.025 (1.000-1.030) Urine Protein Negative mg/dL (NEG-TRACE) Urine Glucose (UA) Negative mg/dL (NEG) Urine Ketones (Stick) Negative mg/dL (NEG) Urine Blood Negative (NEG) Urine Nitrite Negative (NEG) Urine Bilirubin Negative (NEG) Urine Urobilinogen Dipstick 4.0 mg/dL (0.2 mg/dL) Urine Leukocyte Esterase Negative (NEG) Urine RBC 0 /HPF (0-2) Urine WBC Occ /HPF (0-4) Urine Squamous Epithelial Cells Few /LPF Urine Bacteria 0 /HPF (0-FEW) Urine Mucus Slight /LPF SARS-CoV-2 Antigen (Rapid) Positive (NEGATIVE) O2 Saturation 91 % (92-99) Arterial Blood pH 7.44 (7.35-7.45) Arterial Blood pCO2 at Patient Temp 39 mmHg (35-46) Arterial Blood pO2 at Patient Temp 63 mmHg (75-108) Arterial Blood HCO3 26 mmol/L (21-28) Arterial Blood Base Excess 1 mmol/L (-3-3) Oxyhemoglobin 90.7 % Methemoglobin 0.5 % (0.0-1.9) Carbon Monoxide, Quantitative 0.2 % (0.0-1.9) FiO2 21 Laboratory Tests Test 02/28/21 19:47 02/28/21 21:15 02/28/21 21:25 02/28/21 21:50 White Blood Count 4.0 x10^3/uL (4.0-11.0) Red Blood Count 4.66 x10^6/uL (4.30-5.70) Hemoglobin 13.8 g/dL (13.0-17.5) Hematocrit 39.9 % (39.0-53.0) Mean Corpuscular Volume 86 fL (79-100) Mean Corpuscular Hemoglobin 30 pg (25-35) Mean Corpuscular Hemoglobin Concent 35 g/dL (31-37) Red Cell Distribution Width 13.7 % (11.5-14.5) Platelet Count 186 x10^3/uL (140-400) Neutrophils (%) (Auto) 70 % (31-73) Lymphocytes (%) (Auto) 20 % (24-48) Monocytes (%) (Auto) 9 % (0-9) Eosinophils (%) (Auto) 0 % (0-3) Basophils (%) (Auto) 1 % (0-3) Neutrophils # (Auto) 2.8 x10^3/uL (1.8-7.7) Lymphocytes # (Auto) 0.8 x10^3/uL (1.0-4.8) Monocytes # (Auto) 0.4 x10^3/uL (0.0-1.1) Eosinophils # (Auto) 0.0 x10^3/uL (0.0-0.7) Basophils # (Auto) 0.0 x10^3/uL (0.0-0.2) Sodium Level 136 mmol/L (136-145) Potassium Level 3.7 mmol/L (3.5-5.1) Chloride Level 100 mmol/L (98-107) Carbon Dioxide Level 30 mmol/L (21-32) Anion Gap 6 (6-14) Blood Urea Nitrogen 13 mg/dL (8-26) Creatinine 1.2 mg/dL (0.7-1.3) Estimated GFR (Cockcroft-Gault) 76.9 BUN/Creatinine Ratio 11 (6-20) Glucose Level 105 mg/dL (70-99) Lactic Acid Level 0.7 mmol/L (0.4-2.0) Calcium Level 8.1 mg/dL (8.5-10.1) Total Bilirubin 0.6 mg/dL (0.2-1.0) Aspartate Amino Transf (AST/SGOT) 33 U/L (15-37) Alanine Aminotransferase (ALT/SGPT) 41 U/L (16-63) Alkaline Phosphatase 81 U/L (46-116) Troponin I Quantitative < 0.017 ng/mL (0.000-0.055) DK-Yjy-X-Type Natriuretic Peptide 8 pg/mL (0-124) Total Protein 7.6 g/dL (6.4-8.2) Albumin 3.5 g/dL (3.4-5.0) Albumin/Globulin Ratio 0.9 (1.0-1.7) Urine Collection Type Void Urine Color Yellow Urine Clarity Clear Urine pH 8.0 (<5.0-8.0) Urine Specific [place] 1.025 (1.000-1.030) Urine Protein Negative mg/dL (NEG-TRACE) Urine Glucose (UA) Negative mg/dL (NEG) Urine Ketones (Stick) Negative mg/dL (NEG) Urine Blood Negative (NEG) Urine Nitrite Negative (NEG) Urine Bilirubin Negative (NEG) Urine Urobilinogen Dipstick 4.0 mg/dL (0.2 mg/dL) Urine Leukocyte Esterase Negative (NEG) Urine RBC 0 /HPF (0-2) Urine WBC Occ /HPF (0-4) Urine Squamous Epithelial Cells Few /LPF Urine Bacteria 0 /HPF (0-FEW) Urine Mucus Slight /LPF SARS-CoV-2 Antigen (Rapid) Positive (NEGATIVE) O2 Saturation 91 % (92-99) Arterial Blood pH 7.44 (7.35-7.45) Arterial Blood pCO2 at Patient Temp 39 mmHg (35-46) Arterial Blood pO2 at Patient Temp 63 mmHg (75-108) Arterial Blood HCO3 26 mmol/L (21-28) Arterial Blood Base Excess 1 mmol/L (-3-3) Oxyhemoglobin 90.7 % Methemoglobin 0.5 % (0.0-1.9) Carbon Monoxide, Quantitative 0.2 % (0.0-1.9) FiO2 21 Medications Active Scripts Medications Dose Route/Sig Max Daily Dose Days Date Category Lisinopril-Hctz 10-12.5 Mg Tab (Lisinopril/Hydrochlorothiazide) 1 Each Tablet 1 Tab PO DAILY 03/01/21 Reported Atorvastatin Calcium 10 Mg Tablet 1 Tab PO DAILY 03/01/21 Reported Duloxetine Hcl 60 Mg Capsule.dr 1 Cap PO DAILY 03/01/21 Reported Amlodipine Besylate 10 Mg Tablet 1 Tab PO DAILY 03/01/21 Reported Zanaflex (Tizanidine Hcl) 4 Mg Tablet 1 Tab PO BID 03/23/17 Rx [place] 5-325 Tablet (Acetaminophen/Hydrocodone Bitart) 1 Each Tablet 1 Tab PO PRN Q6HRS PRN 11/04/16 Rx CARMEN ELIZALDE MD Mar 01, 2021 07:41
[2021-03-01] MEDS ORDERED: HYDROcodone/APAP 5/325MG 1 TAB TABLET PO PRN (08:30)
--- NOTE | 2021-03-01 08:46 | PDOC1 ---
History and Physical Date of Admission Date of Admission DATE: 03/01/21 TIME: 08:22 History of Present Illness History of Present Illness Mr. Peraza is a 50 year old male who presents with 1 week of nausea, fever, generalized body aches and weakness, shortness of breath, intermittent headache. Patient states that he did get his Covid vaccine the last was in November. He does not remember which vaccine he got. Patient states that his shortness of breath gets better when he is up and moving around. He states he has generalized muscle aches. Denies chest pain, syncope, dizziness, vision change, vomiting, diarrhea, constipation, numbness or tingling, abdominal pain, new back pain. Past Medical History Cardiovascular: HTN, Hyperlipidemia Pulmonary: No pertinent hx GI: No pertinent hx Musculoskeletal: Osteoarthritis (back spasm) ENT: No pertinent hx Endocrine: No pertinent hx Dermatology: No pertinent hx Past Surgical History Past Surgical History He has a history of chronic back pain, spinal fusion, Achilles tendon and surgery, rotator cuff surgery, obesity, high cholesterol, hypertension, hernia repair, sleep apnea. Social History Smoke: No ALCOHOL: none Drugs: None Current Problem List Problem List Problems Medical Problems: (1) COVID-19 Status: Acute (2) Hypoxia Status: Acute (3) Pneumonia Status: Acute Current Medications Current Medications Current Medications Sodium Chloride 1,000 ml @ 1,000 mls/hr Q1H IV Last administered on 02/28/21at 21:23; Start 02/28/21 at 19:15; Stop 02/28/21 at 20:14; Status DC Methylprednisolone Sodium Succinate (SOLU-Medrol 125MG VIAL) 125 mg 1X ONCE IV Last administered on 02/28/21at 21:23; Start 02/28/21 at 19:15; Stop 02/28/21 at 19:19; Status DC Acetaminophen (Tylenol) 1,000 mg 1X ONCE PO Last administered on 02/28/21at 21:23; Start 02/28/21 at 19:15; Stop 02/28/21 at 19:19; Status DC Iohexol (Omnipaque 300 Mg/ml) 75 ml 1X ONCE IV Last administered on 02/28/21at 21:10; Start 02/28/21 at 20:15; Stop 02/28/21 at 20:16; Status DC Info (CONTRAST GIVEN -- Rx MONITORING) 1 each PRN DAILY PRN MC SEE COMMENTS; Start 02/28/21 at 20:30; Stop 03/02/21 at 20:29 Azithromycin 250 ml @ 250 mls/hr 1X ONCE IV Last administered on 02/28/21at 23:22; Start 02/28/21 at 22:30; Stop 02/28/21 at 23:29; Status DC Acetaminophen (Tylenol) 650 mg PRN Q4HRS PRN PO FEVER > 100.3'F; Start 02/28/21 at 22:30; Stop 03/01/21 at 22:29 Active Scripts Active Zanaflex (Tizanidine Hcl) 4 Mg Tablet 1 Tab PO BID [place] 5-325 Tablet (Acetaminophen/Hydrocodone Bitart) 1 Each Tablet 1 Tab PO PRN Q6HRS PRN Reported Lisinopril-Hctz 10-12.5 Mg Tab (Lisinopril/Hydrochlorothiazide) 1 Each Tablet 1 Tab PO DAILY Atorvastatin Calcium 10 Mg Tablet 1 Tab PO DAILY Duloxetine Hcl 60 Mg Capsule.dr 1 Cap PO DAILY Amlodipine Besylate 10 Mg Tablet 1 Tab PO DAILY Allergies Allergies: Coded Allergies: No Known Drug Allergies (Unverified , 11/03/16) ROS General: No: Chills, Night Sweats, Fatigue, Malaise, Appetite, Other PSYCHOLOGICAL ROS: No: Anxiety, Behavioral Disorder, Concentration difficultie, Decreased libido, Depression, Disorientation, Hallucinations, Hostility, Irritablity, Memory difficulties, Mood Swings, Obsessive thoughts, Physical abuse, Sexual abuse, Sleep disturbances, Suicidal ideation, Other Eyes: No Blurry vision, No Decreased vision, No Double vision, No Dry eyes, No Excessive tearing, No Eye Pain, No Itchy Eyes, No Loss of vision, No Photophobia, No Scotomata, No Uses contacts, No Uses glasses, No Other HEENT: No: Heacaches, Visual Changes, Hearing change, Nasal congestion, Nasal discharge, Oral lesions, Sinus pain, Sore Throat, Epistaxis, Sneezing, Snoring, Tinnitus, Vertigo, Vocal changes, Other Physical Exam General: Alert, Cooperative, moderate distress HEENT: EOMI Lungs: Other (rales) Heart: no gallops, irregularly irregular Abdomen: Soft (obese) Extremities: Normal pulses Neuro: Normal speech, Sensation intact Psych/Mental Status: Other Vitals Vitals Vital Signs Date Time Temp Pulse Resp B/P (MAP) Pulse Ox O2 Delivery O2 Flow Rate FiO2 03/01/21 04:45 Room Air 03/01/21 04:14 71 20 128/62 (84) 91 02/28/21 19:15 102.9 102.9 Labs Labs Laboratory Tests Test 02/28/21 19:47 02/28/21 21:15 02/28/21 21:25 02/28/21 21:50 White Blood Count 4.0 x10^3/uL (4.0-11.0) Red Blood Count 4.66 x10^6/uL (4.30-5.70) Hemoglobin 13.8 g/dL (13.0-17.5) Hematocrit 39.9 % (39.0-53.0) Mean Corpuscular Volume 86 fL (79-100) Mean Corpuscular Hemoglobin 30 pg (25-35) Mean Corpuscular Hemoglobin Concent 35 g/dL (31-37) Red Cell Distribution Width 13.7 % (11.5-14.5) Platelet Count 186 x10^3/uL (140-400) Neutrophils (%) (Auto) 70 % (31-73) Lymphocytes (%) (Auto) 20 % (24-48) Monocytes (%) (Auto) 9 % (0-9) Eosinophils (%) (Auto) 0 % (0-3) Basophils (%) (Auto) 1 % (0-3) Neutrophils # (Auto) 2.8 x10^3/uL (1.8-7.7) Lymphocytes # (Auto) 0.8 x10^3/uL (1.0-4.8) Monocytes # (Auto) 0.4 x10^3/uL (0.0-1.1) Eosinophils # (Auto) 0.0 x10^3/uL (0.0-0.7) Basophils # (Auto) 0.0 x10^3/uL (0.0-0.2) Sodium Level 136 mmol/L (136-145) Potassium Level 3.7 mmol/L (3.5-5.1) Chloride Level 100 mmol/L (98-107) Carbon Dioxide Level 30 mmol/L (21-32) Anion Gap 6 (6-14) Blood Urea Nitrogen 13 mg/dL (8-26) Creatinine 1.2 mg/dL (0.7-1.3) Estimated GFR (Cockcroft-Gault) 76.9 BUN/Creatinine Ratio 11 (6-20) Glucose Level 105 mg/dL (70-99) Lactic Acid Level 0.7 mmol/L (0.4-2.0) Calcium Level 8.1 mg/dL (8.5-10.1) Total Bilirubin 0.6 mg/dL (0.2-1.0) Aspartate Amino Transf (AST/SGOT) 33 U/L (15-37) Alanine Aminotransferase (ALT/SGPT) 41 U/L (16-63) Alkaline Phosphatase 81 U/L (46-116) Troponin I Quantitative < 0.017 ng/mL (0.000-0.055) KU-Npa-J-Type Natriuretic Peptide 8 pg/mL (0-124) Total Protein 7.6 g/dL (6.4-8.2) Albumin 3.5 g/dL (3.4-5.0) Albumin/Globulin Ratio 0.9 (1.0-1.7) Urine Collection Type Void Urine Color Yellow Urine Clarity Clear Urine pH 8.0 (<5.0-8.0) Urine Specific [place] 1.025 (1.000-1.030) Urine Protein Negative mg/dL (NEG-TRACE) Urine Glucose (UA) Negative mg/dL (NEG) Urine Ketones (Stick) Negative mg/dL (NEG) Urine Blood Negative (NEG) Urine Nitrite Negative (NEG) Urine Bilirubin Negative (NEG) Urine Urobilinogen Dipstick 4.0 mg/dL (0.2 mg/dL) Urine Leukocyte Esterase Negative (NEG) Urine RBC 0 /HPF (0-2) Urine WBC Occ /HPF (0-4) Urine Squamous Epithelial Cells Few /LPF Urine Bacteria 0 /HPF (0-FEW) Urine Mucus Slight /LPF SARS-CoV-2 Antigen (Rapid) Positive (NEGATIVE) O2 Saturation 91 % (92-99) Arterial Blood pH 7.44 (7.35-7.45) Arterial Blood pCO2 at Patient Temp 39 mmHg (35-46) Arterial Blood pO2 at Patient Temp 63 mmHg (75-108) Arterial Blood HCO3 26 mmol/L (21-28) Arterial Blood Base Excess 1 mmol/L (-3-3) Oxyhemoglobin 90.7 % Methemoglobin 0.5 % (0.0-1.9) Carbon Monoxide, Quantitative 0.2 % (0.0-1.9) FiO2 21 Laboratory Tests Test 02/28/21 19:47 02/28/21 21:15 02/28/21 21:25 02/28/21 21:50 White Blood Count 4.0 x10^3/uL (4.0-11.0) Red Blood Count 4.66 x10^6/uL (4.30-5.70) Hemoglobin 13.8 g/dL (13.0-17.5) Hematocrit 39.9 % (39.0-53.0) Mean Corpuscular Volume 86 fL (79-100) Mean Corpuscular Hemoglobin 30 pg (25-35) Mean Corpuscular Hemoglobin Concent 35 g/dL (31-37) Red Cell Distribution Width 13.7 % (11.5-14.5) Platelet Count 186 x10^3/uL (140-400) Neutrophils (%) (Auto) 70 % (31-73) Lymphocytes (%) (Auto) 20 % (24-48) Monocytes (%) (Auto) 9 % (0-9) Eosinophils (%) (Auto) 0 % (0-3) Basophils (%) (Auto) 1 % (0-3) Neutrophils # (Auto) 2.8 x10^3/uL (1.8-7.7) Lymphocytes # (Auto) 0.8 x10^3/uL (1.0-4.8) Monocytes # (Auto) 0.4 x10^3/uL (0.0-1.1) Eosinophils # (Auto) 0.0 x10^3/uL (0.0-0.7) Basophils # (Auto) 0.0 x10^3/uL (0.0-0.2) Sodium Level 136 mmol/L (136-145) Potassium Level 3.7 mmol/L (3.5-5.1) Chloride Level 100 mmol/L (98-107) Carbon Dioxide Level 30 mmol/L (21-32) Anion Gap 6 (6-14) Blood Urea Nitrogen 13 mg/dL (8-26) Creatinine 1.2 mg/dL (0.7-1.3) Estimated GFR (Cockcroft-Gault) 76.9 BUN/Creatinine Ratio 11 (6-20) Glucose Level 105 mg/dL (70-99) Lactic Acid Level 0.7 mmol/L (0.4-2.0) Calcium Level 8.1 mg/dL (8.5-10.1) Total Bilirubin 0.6 mg/dL (0.2-1.0) Aspartate Amino Transf (AST/SGOT) 33 U/L (15-37) Alanine Aminotransferase (ALT/SGPT) 41 U/L (16-63) Alkaline Phosphatase 81 U/L (46-116) Troponin I Quantitative < 0.017 ng/mL (0.000-0.055) PP-Ehe-W-Type Natriuretic Peptide 8 pg/mL (0-124) Total Protein 7.6 g/dL (6.4-8.2) Albumin 3.5 g/dL (3.4-5.0) Albumin/Globulin Ratio 0.9 (1.0-1.7) Urine Collection Type Void Urine Color Yellow Urine Clarity Clear Urine pH 8.0 (<5.0-8.0) Urine Specific [place] 1.025 (1.000-1.030) Urine Protein Negative mg/dL (NEG-TRACE) Urine Glucose (UA) Negative mg/dL (NEG) Urine Ketones (Stick) Negative mg/dL (NEG) Urine Blood Negative (NEG) Urine Nitrite Negative (NEG) Urine Bilirubin Negative (NEG) Urine Urobilinogen Dipstick 4.0 mg/dL (0.2 mg/dL) Urine Leukocyte Esterase Negative (NEG) Urine RBC 0 /HPF (0-2) Urine WBC Occ /HPF (0-4) Urine Squamous Epithelial Cells Few /LPF Urine Bacteria 0 /HPF (0-FEW) Urine Mucus Slight /LPF SARS-CoV-2 Antigen (Rapid) Positive (NEGATIVE) O2 Saturation 91 % (92-99) Arterial Blood pH 7.44 (7.35-7.45) Arterial Blood pCO2 at Patient Temp 39 mmHg (35-46) Arterial Blood pO2 at Patient Temp 63 mmHg (75-108) Arterial Blood HCO3 26 mmol/L (21-28) Arterial Blood Base Excess 1 mmol/L (-3-3) Oxyhemoglobin 90.7 % Methemoglobin 0.5 % (0.0-1.9) Carbon Monoxide, Quantitative 0.2 % (0.0-1.9) FiO2 21 VTE Prophylaxis Ordered VTE Prophylaxis Devices: No VTE Pharmacological Prophylaxi: Yes Assessment/Plan Assessment/Plan COVID 19 pneumonia morbid obesity , BMI 44 htn hyperlipids no hypoxia try to DC today Justifications for Admission Other Justification CHACORTA PAEZ MD Mar 01, 2021 08:46
[2021-03-01] MEDS ORDERED: PRED-220 PO (08:50)
[2021-03-01] MEDS ORDERED: AZIT250T6 PO (08:50)
--- NOTE | 2021-03-01 08:52 | PDOC3 ---
Discharge Summary Visit Information Date of Admission: Feb 28, 2021 Date of Discharge: Mar 01, 2021 Final Diagnosis COVID 19 pneumonia, morbid obesity , BMI 44 htn hyperlipids acute hypoxia in ER< improved with treatment Problems Medical Problems: (1) COVID-19 Status: Acute (2) Hypoxia Status: Acute (3) Pneumonia Status: Acute Brief Hospital Course Allergies Allergies Coded Allergies Type Severity Reaction Last Updated Verified No Known Drug Allergies 11/03/16 No Vital Signs Vital Signs Date Time Temp Pulse Resp B/P (MAP) Pulse Ox O2 Delivery O2 Flow Rate FiO2 03/01/21 04:45 Room Air 03/01/21 04:14 71 20 128/62 (84) 91 02/28/21 19:15 102.9 102.9 Lab Results Laboratory Tests Test 02/28/21 19:47 02/28/21 21:15 02/28/21 21:25 02/28/21 21:50 White Blood Count 4.0 x10^3/uL (4.0-11.0) Red Blood Count 4.66 x10^6/uL (4.30-5.70) Hemoglobin 13.8 g/dL (13.0-17.5) Hematocrit 39.9 % (39.0-53.0) Mean Corpuscular Volume 86 fL (79-100) Mean Corpuscular Hemoglobin 30 pg (25-35) Mean Corpuscular Hemoglobin Concent 35 g/dL (31-37) Red Cell Distribution Width 13.7 % (11.5-14.5) Platelet Count 186 x10^3/uL (140-400) Neutrophils (%) (Auto) 70 % (31-73) Lymphocytes (%) (Auto) 20 % (24-48) Monocytes (%) (Auto) 9 % (0-9) Eosinophils (%) (Auto) 0 % (0-3) Basophils (%) (Auto) 1 % (0-3) Neutrophils # (Auto) 2.8 x10^3/uL (1.8-7.7) Lymphocytes # (Auto) 0.8 x10^3/uL (1.0-4.8) Monocytes # (Auto) 0.4 x10^3/uL (0.0-1.1) Eosinophils # (Auto) 0.0 x10^3/uL (0.0-0.7) Basophils # (Auto) 0.0 x10^3/uL (0.0-0.2) Sodium Level 136 mmol/L (136-145) Potassium Level 3.7 mmol/L (3.5-5.1) Chloride Level 100 mmol/L (98-107) Carbon Dioxide Level 30 mmol/L (21-32) Anion Gap 6 (6-14) Blood Urea Nitrogen 13 mg/dL (8-26) Creatinine 1.2 mg/dL (0.7-1.3) Estimated GFR (Cockcroft-Gault) 76.9 BUN/Creatinine Ratio 11 (6-20) Glucose Level 105 mg/dL (70-99) Lactic Acid Level 0.7 mmol/L (0.4-2.0) Calcium Level 8.1 mg/dL (8.5-10.1) Total Bilirubin 0.6 mg/dL (0.2-1.0) Aspartate Amino Transf (AST/SGOT) 33 U/L (15-37) Alanine Aminotransferase (ALT/SGPT) 41 U/L (16-63) Alkaline Phosphatase 81 U/L (46-116) Troponin I Quantitative < 0.017 ng/mL (0.000-0.055) JW-Gwc-Q-Type Natriuretic Peptide 8 pg/mL (0-124) Total Protein 7.6 g/dL (6.4-8.2) Albumin 3.5 g/dL (3.4-5.0) Albumin/Globulin Ratio 0.9 (1.0-1.7) Urine Collection Type Void Urine Color Yellow Urine Clarity Clear Urine pH 8.0 (<5.0-8.0) Urine Specific [place] 1.025 (1.000-1.030) Urine Protein Negative mg/dL (NEG-TRACE) Urine Glucose (UA) Negative mg/dL (NEG) Urine Ketones (Stick) Negative mg/dL (NEG) Urine Blood Negative (NEG) Urine Nitrite Negative (NEG) Urine Bilirubin Negative (NEG) Urine Urobilinogen Dipstick 4.0 mg/dL (0.2 mg/dL) Urine Leukocyte Esterase Negative (NEG) Urine RBC 0 /HPF (0-2) Urine WBC Occ /HPF (0-4) Urine Squamous Epithelial Cells Few /LPF Urine Bacteria 0 /HPF (0-FEW) Urine Mucus Slight /LPF SARS-CoV-2 RNA (PELON) Positive (Negative) SARS-CoV-2 Antigen (Rapid) Positive (NEGATIVE) O2 Saturation 91 % (92-99) Arterial Blood pH 7.44 (7.35-7.45) Arterial Blood pCO2 at Patient Temp 39 mmHg (35-46) Arterial Blood pO2 at Patient Temp 63 mmHg (75-108) Arterial Blood HCO3 26 mmol/L (21-28) Arterial Blood Base Excess 1 mmol/L (-3-3) Oxyhemoglobin 90.7 % Methemoglobin 0.5 % (0.0-1.9) Carbon Monoxide, Quantitative 0.2 % (0.0-1.9) FiO2 21 Laboratory Tests Test 02/28/21 19:47 02/28/21 21:15 02/28/21 21:25 02/28/21 21:50 White Blood Count 4.0 x10^3/uL (4.0-11.0) Red Blood Count 4.66 x10^6/uL (4.30-5.70) Hemoglobin 13.8 g/dL (13.0-17.5) Hematocrit 39.9 % (39.0-53.0) Mean Corpuscular Volume 86 fL (79-100) Mean Corpuscular Hemoglobin 30 pg (25-35) Mean Corpuscular Hemoglobin Concent 35 g/dL (31-37) Red Cell Distribution Width 13.7 % (11.5-14.5) Platelet Count 186 x10^3/uL (140-400) Neutrophils (%) (Auto) 70 % (31-73) Lymphocytes (%) (Auto) 20 % (24-48) Monocytes (%) (Auto) 9 % (0-9) Eosinophils (%) (Auto) 0 % (0-3) Basophils (%) (Auto) 1 % (0-3) Neutrophils # (Auto) 2.8 x10^3/uL (1.8-7.7) Lymphocytes # (Auto) 0.8 x10^3/uL (1.0-4.8) Monocytes # (Auto) 0.4 x10^3/uL (0.0-1.1) Eosinophils # (Auto) 0.0 x10^3/uL (0.0-0.7) Basophils # (Auto) 0.0 x10^3/uL (0.0-0.2) Sodium Level 136 mmol/L (136-145) Potassium Level 3.7 mmol/L (3.5-5.1) Chloride Level 100 mmol/L (98-107) Carbon Dioxide Level 30 mmol/L (21-32) Anion Gap 6 (6-14) Blood Urea Nitrogen 13 mg/dL (8-26) Creatinine 1.2 mg/dL (0.7-1.3) Estimated GFR (Cockcroft-Gault) 76.9 BUN/Creatinine Ratio 11 (6-20) Glucose Level 105 mg/dL (70-99) Lactic Acid Level 0.7 mmol/L (0.4-2.0) Calcium Level 8.1 mg/dL (8.5-10.1) Total Bilirubin 0.6 mg/dL (0.2-1.0) Aspartate Amino Transf (AST/SGOT) 33 U/L (15-37) Alanine Aminotransferase (ALT/SGPT) 41 U/L (16-63) Alkaline Phosphatase 81 U/L (46-116) Troponin I Quantitative < 0.017 ng/mL (0.000-0.055) CP-Dly-K-Type Natriuretic Peptide 8 pg/mL (0-124) Total Protein 7.6 g/dL (6.4-8.2) Albumin 3.5 g/dL (3.4-5.0) Albumin/Globulin Ratio 0.9 (1.0-1.7) Urine Collection Type Void Urine Color Yellow Urine Clarity Clear Urine pH 8.0 (<5.0-8.0) Urine Specific [place] 1.025 (1.000-1.030) Urine Protein Negative mg/dL (NEG-TRACE) Urine Glucose (UA) Negative mg/dL (NEG) Urine Ketones (Stick) Negative mg/dL (NEG) Urine Blood Negative (NEG) Urine Nitrite Negative (NEG) Urine Bilirubin Negative (NEG) Urine Urobilinogen Dipstick 4.0 mg/dL (0.2 mg/dL) Urine Leukocyte Esterase Negative (NEG) Urine RBC 0 /HPF (0-2) Urine WBC Occ /HPF (0-4) Urine Squamous Epithelial Cells Few /LPF Urine Bacteria 0 /HPF (0-FEW) Urine Mucus Slight /LPF SARS-CoV-2 RNA (PELON) Positive (Negative) SARS-CoV-2 Antigen (Rapid) Positive (NEGATIVE) O2 Saturation 91 % (92-99) Arterial Blood pH 7.44 (7.35-7.45) Arterial Blood pCO2 at Patient Temp 39 mmHg (35-46) Arterial Blood pO2 at Patient Temp 63 mmHg (75-108) Arterial Blood HCO3 26 mmol/L (21-28) Arterial Blood Base Excess 1 mmol/L (-3-3) Oxyhemoglobin 90.7 % Methemoglobin 0.5 % (0.0-1.9) Carbon Monoxide, Quantitative 0.2 % (0.0-1.9) FiO2 21 Brief Hospital Course 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 Discharge Information Condition at Discharge: Improved Follow Up: Weeks Disposition/Orders: D/C to Home Scheduled Amlodipine Besylate (Amlodipine Besylate) 10 Mg Tablet, 1 TAB PO DAILY for HTN, (Reported) Entered as Reported by: EVELIO TOBIAS on 03/01/21527 Last Action: Continued on 03/01/21823 by CHACORTA PAEZ Atorvastatin Calcium (Atorvastatin Calcium) 10 Mg Tablet, 1 TAB PO DAILY for HLD, (Reported) Entered as Reported by: EVELIO TOBIAS on 03/01/21527 Last Action: Continued on 03/01/21823 by CHACORTA PAEZ Azithromycin (Azithromycin Tablet) 250 Mg Tablet, 250 MG PO DAILY for covid, #5 Prescribed by: CHACORTA PAEZ on 03/01/21849 Duloxetine Hcl (Duloxetine Hcl) 60 Mg Capsule.dr, 1 CAP PO DAILY for depression, (Reported) Entered as Reported by: EVELIO TOBIAS on 03/01/21527 Last Action: Converted on 03/01/21823 by CHACORTA PAEZ Lisinopril/Hydrochlorothiazide (Lisinopril-Hctz 10-12.5 Mg Tab) 1 Each Tablet, 1 TAB PO DAILY for HTN, (Reported) Entered as Reported by: EVELIO TOBIAS on 03/01/21527 Last Action: New Order on 03/01/21527 by EVELIO TIMONERA Prednisone (Prednisone ) 10 Mg Tablet, 10 MG PO UD for COVID, #20 Ref 0 Take 4 tablets by mouth daily for 2 days, then take 3 tablets by mouth daily for 2 days, then take 2 tablets by mouth daily for 2 days, then take 1 tablets by mouth daily for 2 days, then stop. Prescribed by: CHACORTA PAEZ on 03/01/21 0850 Tizanidine Hcl (Zanaflex) 4 Mg Tablet, 1 TAB PO BID, #30 Prescribed by: SANDHYA REYNA MD on 03/23/17 0032 Last Action: Continued on 03/01/21823 by CHACORTA PAEZ Scheduled PRN Hydrocodone/Apap 5-325 ([place] 5-325 Tablet) 1 Each Tablet, 1 TAB PO PRN Q6HRS PRN for PAIN, #25 Prescribed by: AIDA CHANEY MD on 11/04/16 0248 Last Action: Continued on 03/01/21823 by CHACORTA PAEZ Patient Instructions Patient Instructions a/d same Justicifation of Admission Dx: Justifications for Admission: Justification of Admission Dx: No (obs, better quick) CHACORTA PAEZ MD Mar 01, 2021 08:52
[2021-03-01] MEDS ORDERED: cefTRIAXone IV Push 1 GM VIAL. IVP SCH (09:00)
[2021-03-01] MEDS ORDERED: DULoxetine HCL 30 MG CAPSULE.DR PO SCH (09:00)
[2021-03-01] MEDS ORDERED: ZINC SULFATE 220 MG CAPSULE. PO SCH (09:00)
[2021-03-01] MEDS ORDERED: ENOXAPARIN 40 MG/0.4 ML SYRINGE. SQ SCH (09:00)
[2021-03-01] MEDS ORDERED: DEXAMETHASONE SOD PHOS 4 MG/ML VIAL IVP SCH (09:00)
[2021-03-01] MEDS ORDERED: tiZANidine 4 MG TABLET. PO SCH (09:00)
--- NOTE | 2021-03-01 10:53 | NUR ---
SW following. Discussed with RN, pt from home, room air, cardiac diet, COVID-19 positive. Discharge order for home with self care. RN advised no SW needs.
[2021-03-01 11:00] VITALS: BP 143/70
--- NOTE | 2021-03-01 12:28 | NUR ---
Discharge Note: [facility] Discharge instructions and discharge home medications reviewed with Patient and a copy given. Education given over covid-19, isolation, and SOB. All questions have been answered and understanding verbalized. The following instructions and handouts were given: Follow up with PCP Discontinued IV line and telemetry. Patient discharged to Home with self-care and is waiting on his ride.
[2021-03-01] MEDS ORDERED: AZITHROMYCIN 250 MG TABLET. PO SCH (13:00)
[2021-03-01] MEDS ORDERED: ATORVASTATIN CALCIUM 10 MG TABLET. PO SCH (21:00)
== END 2021-03-01 13:50 | disposition home or self-care (01) ==
LOC: ER 18:59 → ED HOLD 22:29 → 6 SOUTH 03-01 03:26
PROVIDERS: ADMIT Internal Medicine; ATTEND Internal Medicine
DX: U07.1 COVID-19 (principal); J12.82 Pneumonia due to coronavirus disease 2019; E78.00 Pure hypercholesterolemia, unspecified; I10 Essential (primary) hypertension; G47.33 Obstructive sleep apnea (adult) (pediatric); G89.29 Other chronic pain; M54.9 Dorsalgia, unspecified; E66.01 Morbid (severe) obesity due to excess calories; M62.830 Muscle spasm of back; E78.5 Hyperlipidemia, unspecified; R09.02 Hypoxemia; Z91.19 Patient's noncompliance with other medical treatment and regimen; Z98.1 Arthrodesis status; Z98.890 Other specified postprocedural states; Z68.41 Body mass index [BMI] 40.0-44.9, adult
CPT/HCPCS: 36415; 36600; 71045; 74177; 80053; 81001; 82805; 83605; 83880; 84484; 85025; 87426; 93005; 96361; 96365; 96366; 96372; 96375; 99285; G0378; J0456; J0696; J1100; J1650; J2930; J7030; Q9967; U0003; U0005; G0379